=== PATIENT | male | born 1975 | race Caucasian/White ===

== ENCOUNTER 2023-05-24 22:04 | Emergency (ER) | payer MEDICARE ==
[~2023-05-24] VITALS: Ht 180.3 cm; Wt 104.0 kg
[2023-05-24] MEDS ORDERED: BUPR-345 PO (22:15)
[2023-05-24] MEDS ORDERED: ALBU18HF12 IH (22:15)
[2023-05-24] MEDS ORDERED: QUET300T2 PO (22:15)
[2023-05-24] MEDS ORDERED: LURA60TA PO (22:15)
[2023-05-24 23:34] LABS: HEMOGLOBIN 13.7 g/dL (13.5-17.5); RED BLOOD CELL COUNT(AUTO) 4.66 MIL/uL (4.50-5.90)
[2023-05-24 23:37] LABS: BASOPHILS % (AUTO) 1.3 % (0.0-2.0); EOSINOPHILS % (AUTO) 2.6 % (1.0-6.0); HEMATOCRIT 41.3 % (41-53); LYMPHOCYTES # (AUTO) 1.5 K/uL (1.0-4.8); LYMPHOCYTES % (AUTO) 33.3 % (22.0-44.0); MEAN CORPUSCULAR HEMOGLOBIN 29.4 pg (26.0-34.0); MEAN CORPUSCULAR HGB CONC 33.2 G/dL (31.0-37.0); MEAN CORPUSCULAR VOLUME 89 fL (80-100); MONOCYTES # (AUTO) 0.4 K/uL (0.1-1.0); MONOCYTES % (AUTO) 9.8 % (2.0-9.0); NEUTROPHILS # (AUTO) 2.4 K/uL (1.8-7.7); PLATELET COUNT (AUTO) 226 K/uL (150-450); RED CELL DISTRIBUTION WIDTH 15.5 % (11.5-14.5)
[2023-05-24 23:43] LABS: ANION GAP 6 mmol/L (8-16); CALCIUM, TOTAL 9.1 mg/dL (8.8-10.5); CARBON DIOXIDE 29 mmol/L (22-29); CHLORIDE 103 mmol/L (98-107); CREATININE 0.72 mg/dL (0.60-1.30); GLOMERULAR FILTR. RATE CALC > 60 mL/min (>60); GLUCOSE,RANDOM 106 mg/dL (70-110); POTASSIUM 3.7 mmol/L (3.5-5.1); SODIUM SERUM 138 mmol/L (136-145)
[2023-05-24 23:49] LABS: ALANINE AMINOTRANSFERASE 14 U/L (12-78); ALBUMIN 3.1 g/dL (3.4-5.0); ALKALINE PHOSPHATASE 80 U/L (46-116); ASPARTATE AMINOTRANSFERASE 14 U/L (15-37); BILIRUBIN,TOTAL 0.2 mg/dL (0.1-1.0); CREATINE KINASE, TOTAL ONLY 58 U/L (39-308); TOTAL PROTEIN, SERUM 6.3 g/dL (6.4-8.2)
[2023-05-24 23:51] LABS: B-TYPE NATRIURETIC PEPTIDE 27 pg/mL (0-100)
[2023-05-25 02:13] VITALS: BP 129/84; PULSE 69; RESP 16; TEMP 97.9
== END 2023-05-25 02:15 | disposition home or self-care (01) ==
LOC: EDSEX 22:06 → EMS 22:06
DX: R60.0 Localized edema (principal); F31.9 Bipolar disorder, unspecified; J44.9 Chronic obstructive pulmonary disease, unspecified; F17.210 Nicotine dependence, cigarettes, uncomplicated; F15.90 Other stimulant use, unspecified, uncomplicated; Z98.890 Other specified postprocedural states
CPT/HCPCS: 99285; 71045; 80053; 82550; 83880; 84484; 85025; 93005; G0480

== ENCOUNTER 2023-05-25 04:57 | Inpatient (IN) | payer MEDICARE ==
[~2023-05-25] VITALS: Ht 180.3 cm; Wt 107.0 kg
[~2023-05-25 04:57] MED LIST: ALBU18HF12 IH; BUPR-345 PO; LURA60TA PO; QUET300T2 PO
[2023-05-25 07:51] LABS: ALCOHOL, URINE DRUG SCREEN NEGATIVE (NEGATIVE); AMPHET/METH SCREEN,URINE NEGATIVE (NEGATIVE); BARBITURATE SCREEN, URINE NEGATIVE (NEGATIVE); BENZODIAZEPINES SCREEN,URINE NEGATIVE (NEGATIVE); CANNABINOID SCREEN,URINE NEGATIVE (NEGATIVE); COCAINE SCREEN,URINE NEGATIVE (NEGATIVE); METHADONE SCREEN, URINE NEGATIVE (NEGATIVE); OPIATE SCREEN,URINE NEGATIVE (NEGATIVE); PHENCYCLIDINE SCREEN,URINE NEGATIVE (NEGATIVE)
[2023-05-25 08:14] LABS: COVID AG,FIA SOURCE NASAL SWAB
[2023-05-25 08:36] LABS: SARS-COV2 (COVID) ANTIGEN,FIA Negative (Negative)
[2023-05-25] MEDS ORDERED: OLANZapine 5 MG RAPDIS TABLET PO PRN (10:15)
[2023-05-25] MEDS ORDERED: ZOLPIDEM TARTRATE 5 MG TABLET PO PRN (10:15)
[2023-05-25 17:26] VITALS: RESP 18; TEMP 98.4
[2023-05-25] MEDS: LORazepam 2 MG TABLET PO PRN (19:21)
[2023-05-25 19:50] VITALS: BP 126/69; PULSE 81; RESP 18; TEMP 98; O2SAT 96
[2023-05-25 20:14] VITALS: BP 126/69; PULSE 81; RESP 18; TEMP 98; O2SAT 96
[2023-05-25] MEDS ORDERED: ACETAMINOPHEN 325 MG TABLET PO PRN (20:30)
[2023-05-26] MEDS: LORazepam 2 MG TABLET PO PRN (12:28)
[2023-05-26 15:00] VITALS: BP 125/70; PULSE 85; RESP 18; TEMP 97.8; O2SAT 97
[2023-05-26] MEDS ORDERED: GuaiFENesin/D-METHORPHAN [SUGAR-FREE] 200-20MG/10 ML SYRUP UDCUP PO PRN (16:00)
[2023-05-26] MEDS ORDERED: MAG HYDROX/AL HYDROX/SIMETH ES 30 ML SUSPENSION UDCUP PO PRN (16:00)
[2023-05-26] MEDS ORDERED: LOPERAMIDE HCL 2 MG CAPSULE PO PRN (16:00)
[2023-05-26] MEDS ORDERED: HydrOXYzine PAMOATE 50 MG CAPSULE PO PRN (16:00)
[2023-05-26] MEDS ORDERED: PROMETHAZINE HCL 25 MG TABLET PO PRN (16:00)
[2023-05-26] MEDS ORDERED: QUEtiapine FUMARATE 100 MG TABLET PO PRN (16:00)
[2023-05-26] MEDS ORDERED: ZOLPIDEM TARTRATE 5 MG TABLET PO PRN (16:00)
[2023-05-26] MEDS ORDERED: ACETAMINOPHEN 325 MG TABLET PO PRN (16:00)
[2023-05-26] MEDS ORDERED: TUBERCULIN, PURIFIED PROTEIN DERIVATIVE 5 TU/0.1 ML SYRINGE ID ONE (16:00)
[2023-05-26] MEDS: THIAMINE 100 MG TABLET PO SCH (17:04)
[2023-05-26] MEDS ORDERED: PNEUMOCOCCAL VACCINE POLYVALENT 0.5 ML SYRINGE [PPSV23] IM. ONE (18:45)
[2023-05-26] MEDS: MELATONIN 5 MG TABLET PO SCH (20:34)
[2023-05-26 20:43] VITALS: BP 110/68; PULSE 79; RESP 17; TEMP 98.1; O2SAT 97
[2023-05-26] MEDS ORDERED: QUEtiapine FUMARATE 200 MG TABLET PO SCH (21:00)
[2023-05-27 07:57] LABS: HEMOGLOBIN 13.7 g/dL (13.5-17.5); LYMPHOCYTES # (AUTO) 1.7 K/uL (1.0-4.8); LYMPHOCYTES % (AUTO) 47.5 % (22.0-44.0); MEAN CORPUSCULAR HEMOGLOBIN 29.1 pg (26.0-34.0); MEAN CORPUSCULAR HGB CONC 32.7 G/dL (31.0-37.0); MEAN CORPUSCULAR VOLUME 89 fL (80-100); MONOCYTES # (AUTO) 0.4 K/uL (0.1-1.0); MONOCYTES % (AUTO) 10.4 % (2.0-9.0); NEUTROPHILS # (AUTO) 1.4 K/uL (1.8-7.7); NEUTROPHILS % (AUTO) 38.1 % (40.0-70.0); PLATELET COUNT (AUTO) 203 K/uL (150-450); RED BLOOD CELL COUNT(AUTO) 4.73 MIL/uL (4.50-5.90); RED CELL DISTRIBUTION WIDTH 15.5 % (11.5-14.5); WHITE BLOOD COUNT (AUTO) 3.6 K/uL (4.5-11.0)
[2023-05-27 08:26] LABS: HEMOGLOBIN A1C 5.2 % (3.8-5.6)
[2023-05-27 08:34] LABS: ALANINE AMINOTRANSFERASE 13 U/L (12-78); ALBUMIN 2.8 g/dL (3.4-5.0); ALKALINE PHOSPHATASE 68 U/L (46-116); ANION GAP 6 mmol/L (8-16); ASPARTATE AMINOTRANSFERASE 13 U/L (15-37); BILIRUBIN,TOTAL 0.1 mg/dL (0.1-1.0); CALCIUM, TOTAL 8.7 mg/dL (8.8-10.5); CARBON DIOXIDE 30 mmol/L (22-29); CHLORIDE 105 mmol/L (98-107); CHOL/HDL RATIO 2.7 (4.2-7.3); CHOLESTEROL 109 mg/dL (131-200); CREATININE 0.69 mg/dL (0.60-1.30); GLOMERULAR FILTR. RATE CALC > 60 mL/min (>60); GLUCOSE,RANDOM 94 mg/dL (70-110); HDL CHOLESTEROL 41 mg/dL (40-60); LDL CHOL (CALC.) 57 mg/dL (0-130); POTASSIUM 3.8 mmol/L (3.5-5.1); SODIUM SERUM 141 mmol/L (136-145); TOTAL PROTEIN, SERUM 5.8 g/dL (6.4-8.2); TRIGLYCERIDES 55 mg/dL (15-150); UREA NITROGEN, BLOOD 11 mg/dL (7-18)
[2023-05-27] MEDS: THIAMINE 100 MG TABLET PO SCH ×2 (08:40→17:32)
[2023-05-27] MEDS: OMEGA-3/DHA/EPA/FISH OIL 1,000 MG CAPSULE PO SCH (08:40)
[2023-05-27] MEDS: FOLIC ACID 1 MG TABLET PO SCH (08:40)
[2023-05-27] MEDS: MULTIVITAMINS WITH MINERALS, THERAPEUTIC TABLET PO SCH (08:40)
[2023-05-27] MEDS: IBUPROFEN 600 MG TABLET PO PRN ×2 (08:54→20:42)
[2023-05-27] MEDS ORDERED: BuPROPion HCL XL 150 MG ER TABLET PO SCH (09:00)
[2023-05-27 09:03] VITALS: BP 116/68; PULSE 80; RESP 17; TEMP 98.3; O2SAT 97
[2023-05-27 09:03] LABS: FREE T4 (FREE THYROXINE) 0.93 ng/dL (0.76-1.46)
[2023-05-27] MEDS: LORazepam 2 MG TABLET PO PRN ×2 (12:09→20:47)
[2023-05-27 20:40] VITALS: BP 112/60; PULSE 78; RESP 18; TEMP 98; O2SAT 96
[2023-05-27] MEDS: MELATONIN 5 MG TABLET PO SCH (20:42)
[2023-05-27] MEDS ORDERED: QUEtiapine FUMARATE 200 MG TABLET PO SCH (21:00)
[2023-05-27 21:40] VITALS: BP 103/54; PULSE 72; RESP 18; TEMP 98.3; O2SAT 98
[2023-05-28 03:06] LABS: HEPATITIS C AB (EIA) Non Reactive (Non Reactive)
[2023-05-28 08:23] LABS: PH,URINE DRUG SCREEN 7.5 (5.0-8.0)
[2023-05-28 08:32] LABS: ALCOHOL, URINE DRUG SCREEN NEGATIVE (NEGATIVE); AMPHET/METH SCREEN,URINE NEGATIVE (NEGATIVE); BARBITURATE SCREEN, URINE NEGATIVE (NEGATIVE); BENZODIAZEPINES SCREEN,URINE NEGATIVE (NEGATIVE); CANNABINOID SCREEN,URINE NEGATIVE (NEGATIVE); COCAINE SCREEN,URINE NEGATIVE (NEGATIVE); METHADONE SCREEN, URINE NEGATIVE (NEGATIVE); OPIATE SCREEN,URINE NEGATIVE (NEGATIVE); PHENCYCLIDINE SCREEN,URINE NEGATIVE (NEGATIVE)
[2023-05-28] MEDS: THIAMINE 100 MG TABLET PO SCH ×2 (08:47→16:58)
[2023-05-28] MEDS: OMEGA-3/DHA/EPA/FISH OIL 1,000 MG CAPSULE PO SCH (08:47)
[2023-05-28] MEDS: MULTIVITAMINS WITH MINERALS, THERAPEUTIC TABLET PO SCH (08:47)
[2023-05-28] MEDS: PREGABALIN 25 MG CAPSULE PO SCH ×2 (08:47→13:02)
[2023-05-28] MEDS: FOLIC ACID 1 MG TABLET PO SCH (08:47)
[2023-05-28] MEDS ORDERED: DULoxetine HCL 20 MG CAPSULE PO SCH (09:00)
[2023-05-28 09:08] VITALS: BP 108/66; PULSE 59; RESP 18; TEMP 98.8; O2SAT 97
[2023-05-28] MEDS: LORazepam 2 MG TABLET PO PRN (13:13)
[2023-05-28] MEDS: PREGABALIN 50 MG CAPSULE PO SCH (17:08)
[2023-05-28] MEDS: MELATONIN 5 MG TABLET PO SCH (20:41)
[2023-05-28] MEDS: QUEtiapine FUMARATE 300 MG TABLET PO SCH (20:42)
[2023-05-28 20:45] VITALS: BP 125/73; PULSE 87; RESP 18; TEMP 98.1; O2SAT 96
[2023-05-29] MEDS: MULTIVITAMINS WITH MINERALS, THERAPEUTIC TABLET PO SCH (08:31)
[2023-05-29] MEDS: OMEGA-3/DHA/EPA/FISH OIL 1,000 MG CAPSULE PO SCH (08:31)
[2023-05-29] MEDS: FOLIC ACID 1 MG TABLET PO SCH (08:31)
[2023-05-29] MEDS: THIAMINE 100 MG TABLET PO SCH ×2 (08:31→16:26)
[2023-05-29] MEDS: PREGABALIN 50 MG CAPSULE PO SCH ×3 (08:49→16:26)
[2023-05-29] MEDS ORDERED: DULoxetine HCL 30 MG CAPSULE PO SCH (09:00)
[2023-05-29 09:13] VITALS: BP 101/69; PULSE 86; RESP 17; TEMP 97.3; O2SAT 98
[2023-05-29] MEDS: LORazepam 2 MG TABLET PO PRN (17:32)
[2023-05-29] MEDS: MELATONIN 5 MG TABLET PO SCH (21:15)
[2023-05-29] MEDS: QUEtiapine FUMARATE 300 MG TABLET PO SCH (21:15)
[2023-05-30 01:33] VITALS: BP 100/68; PULSE 88; RESP 18; TEMP 97.8; O2SAT 98
[2023-05-30 08:26] VITALS: BP 108/70; PULSE 73; RESP 17; TEMP 98; O2SAT 99
[2023-05-30] MEDS: FOLIC ACID 1 MG TABLET PO SCH (08:46)
[2023-05-30] MEDS: MULTIVITAMINS WITH MINERALS, THERAPEUTIC TABLET PO SCH (08:46)
[2023-05-30] MEDS: PREGABALIN 75 MG CAPSULE PO SCH ×3 (08:46→16:33)
[2023-05-30] MEDS: OMEGA-3/DHA/EPA/FISH OIL 1,000 MG CAPSULE PO SCH (08:46)
[2023-05-30] MEDS: DULoxetine HCL 20 MG CAPSULE PO SCH (08:46)
[2023-05-30] MEDS: THIAMINE 100 MG TABLET PO SCH ×2 (08:46→16:33)
[2023-05-30] MEDS: LORazepam 2 MG TABLET PO PRN (17:23)
[2023-05-30 20:01] VITALS: BP 106/61; PULSE 74; RESP 16; TEMP 98.3; O2SAT 96
[2023-05-30] MEDS: MELATONIN 5 MG TABLET PO SCH (20:28)
[2023-05-30] MEDS: QUEtiapine FUMARATE 300 MG TABLET PO SCH (20:29)
[2023-05-31] MEDS: DULoxetine HCL 20 MG CAPSULE PO SCH (08:38)
[2023-05-31] MEDS: PREGABALIN 75 MG CAPSULE PO SCH ×3 (08:38→17:14)
[2023-05-31] MEDS: OMEGA-3/DHA/EPA/FISH OIL 1,000 MG CAPSULE PO SCH (08:38)
[2023-05-31] MEDS: THIAMINE 100 MG TABLET PO SCH ×2 (08:38→17:14)
[2023-05-31] MEDS: FOLIC ACID 1 MG TABLET PO SCH (08:39)
[2023-05-31] MEDS: MULTIVITAMINS WITH MINERALS, THERAPEUTIC TABLET PO SCH (08:39)
[2023-05-31 08:41] VITALS: BP 105/61; PULSE 86; RESP 18; TEMP 98.2; O2SAT 98
[2023-05-31] MEDS: LORazepam 2 MG TABLET PO PRN (12:45)
[2023-05-31 20:09] VITALS: BP 106/60; PULSE 75; RESP 17; TEMP 98.3; O2SAT 96
[2023-05-31] MEDS: MELATONIN 5 MG TABLET PO SCH (20:18)
[2023-05-31] MEDS: QUEtiapine FUMARATE 300 MG TABLET PO SCH (20:18)
[2023-06-01] MEDS: PREGABALIN 75 MG CAPSULE PO SCH ×2 (08:27→12:07)
[2023-06-01] MEDS: MULTIVITAMINS WITH MINERALS, THERAPEUTIC TABLET PO SCH (08:27)
[2023-06-01] MEDS: DULoxetine HCL 20 MG CAPSULE PO SCH (08:27)
[2023-06-01] MEDS: THIAMINE 100 MG TABLET PO SCH ×2 (08:27→16:30)
[2023-06-01] MEDS: OMEGA-3/DHA/EPA/FISH OIL 1,000 MG CAPSULE PO SCH (08:27)
[2023-06-01] MEDS: FOLIC ACID 1 MG TABLET PO SCH (08:27)
[2023-06-01 09:11] VITALS: BP 112/61; PULSE 85; RESP 18; TEMP 97.8; O2SAT 97
[2023-06-01] MEDS: LORazepam 2 MG TABLET PO PRN (12:07)
[2023-06-01] MEDS: PREGABALIN 50 MG CAPSULE PO SCH (16:37)
[2023-06-01] MEDS: MELATONIN 5 MG TABLET PO SCH (20:28)
[2023-06-01] MEDS: QUEtiapine FUMARATE 200 MG TABLET PO SCH (20:31)
[2023-06-01 20:35] VITALS: BP 110/70; PULSE 68; RESP 18; TEMP 98; O2SAT 97
[2023-06-02] MEDS: MULTIVITAMINS WITH MINERALS, THERAPEUTIC TABLET PO SCH (08:40)
[2023-06-02] MEDS: OMEGA-3/DHA/EPA/FISH OIL 1,000 MG CAPSULE PO SCH (08:40)
[2023-06-02] MEDS: FOLIC ACID 1 MG TABLET PO SCH (08:40)
[2023-06-02] MEDS: PREGABALIN 50 MG CAPSULE PO SCH ×3 (08:40→16:34)
[2023-06-02] MEDS: THIAMINE 100 MG TABLET PO SCH ×2 (08:40→16:34)
[2023-06-02 08:45] VITALS: BP 116/69; PULSE 87; RESP 17; TEMP 97.3; O2SAT 98
[2023-06-02] MEDS ORDERED: DULoxetine HCL 60 MG CAPSULE PO SCH (09:00)
[2023-06-02] MEDS: LORazepam 2 MG TABLET PO PRN (09:18)
[2023-06-02] MEDS: MELATONIN 5 MG TABLET PO SCH (20:01)
[2023-06-02] MEDS: QUEtiapine FUMARATE 200 MG TABLET PO SCH (20:01)
[2023-06-02 20:13] VITALS: BP 115/82; PULSE 74; RESP 19; TEMP 98; O2SAT 96
[2023-06-03 08:30] VITALS: BP 109/59; PULSE 82; RESP 18; TEMP 97.8; O2SAT 97
[2023-06-03] MEDS: OMEGA-3/DHA/EPA/FISH OIL 1,000 MG CAPSULE PO SCH (08:43)
[2023-06-03] MEDS: MULTIVITAMINS WITH MINERALS, THERAPEUTIC TABLET PO SCH (08:43)
[2023-06-03] MEDS: PREGABALIN 50 MG CAPSULE PO SCH ×3 (08:43→17:09)
[2023-06-03] MEDS: FOLIC ACID 1 MG TABLET PO SCH (08:44)
[2023-06-03] MEDS: THIAMINE 100 MG TABLET PO SCH ×2 (08:44→17:09)
[2023-06-03] MEDS ORDERED: DULoxetine HCL 20 MG CAPSULE PO SCH (09:00)
[2023-06-03] MEDS: LORazepam 2 MG TABLET PO PRN (12:16)
[2023-06-03 20:08] VITALS: BP 105/70; PULSE 79; RESP 16; TEMP 98.1; O2SAT 97
[2023-06-03] MEDS: QUEtiapine FUMARATE 200 MG TABLET PO SCH (20:17)
[2023-06-03] MEDS: MELATONIN 5 MG TABLET PO SCH (20:17)
[2023-06-04 08:51] VITALS: BP 108/68; PULSE 80; RESP 18; TEMP 97.9; O2SAT 98
[2023-06-04] MEDS: THIAMINE 100 MG TABLET PO SCH ×2 (08:51→17:10)
[2023-06-04] MEDS: OMEGA-3/DHA/EPA/FISH OIL 1,000 MG CAPSULE PO SCH (08:51)
[2023-06-04] MEDS: PREGABALIN 50 MG CAPSULE PO SCH ×3 (08:51→17:10)
[2023-06-04] MEDS: MULTIVITAMINS WITH MINERALS, THERAPEUTIC TABLET PO SCH (08:51)
[2023-06-04] MEDS: FOLIC ACID 1 MG TABLET PO SCH (08:51)
[2023-06-04] MEDS ORDERED: DULoxetine HCL 30 MG CAPSULE PO SCH (09:00)
[2023-06-04] MEDS: LORazepam 2 MG TABLET PO PRN (10:02)
[2023-06-04] MEDS: MAGNESIUM HYDROXIDE SUSPENSION 30 ML UDCUP PO PRN (10:02)
[2023-06-04 20:02] VITALS: BP 117/64; PULSE 71; RESP 19; TEMP 97.8; O2SAT 97
[2023-06-04] MEDS: QUEtiapine FUMARATE 200 MG TABLET PO SCH (20:35)
[2023-06-04] MEDS: MELATONIN 5 MG TABLET PO SCH (20:35)
[2023-06-05 08:10] VITALS: BP 113/63; PULSE 83; RESP 16; TEMP 97.5; O2SAT 97
[2023-06-05] MEDS ORDERED: DULoxetine HCL 20 MG CAPSULE PO SCH (09:00)
[2023-06-05] MEDS: THIAMINE 100 MG TABLET PO SCH (09:08)
[2023-06-05] MEDS: FOLIC ACID 1 MG TABLET PO SCH (09:08)
[2023-06-05] MEDS: DULoxetine HCL 60 MG CAPSULE PO SCH (09:08)
[2023-06-05] MEDS: PREGABALIN 50 MG CAPSULE PO SCH ×3 (09:08→17:27)
[2023-06-05] MEDS: OMEGA-3/DHA/EPA/FISH OIL 1,000 MG CAPSULE PO SCH (09:08)
[2023-06-05] MEDS: MULTIVITAMINS WITH MINERALS, THERAPEUTIC TABLET PO SCH (09:08)
[2023-06-05] MEDS: LORazepam 2 MG TABLET PO PRN (12:05)
[2023-06-05] MEDS: QUEtiapine FUMARATE 300 MG TABLET PO SCH (20:46)
[2023-06-05] MEDS: MELATONIN 5 MG TABLET PO SCH (20:47)
[2023-06-05 23:45] VITALS: BP 126/77; PULSE 78; RESP 17; TEMP 97.7; O2SAT 98
[2023-06-06] MEDS: PREGABALIN 50 MG CAPSULE PO SCH ×3 (08:58→16:40)
[2023-06-06] MEDS: OMEGA-3/DHA/EPA/FISH OIL 1,000 MG CAPSULE PO SCH (08:58)
[2023-06-06] MEDS: MULTIVITAMINS WITH MINERALS, THERAPEUTIC TABLET PO SCH (08:59)
[2023-06-06] MEDS: DULoxetine HCL 60 MG CAPSULE PO SCH (08:59)
[2023-06-06 09:01] VITALS: BP 111/78; PULSE 114; RESP 18; TEMP 97.9; O2SAT 97
[2023-06-06] MEDS: LORazepam 2 MG TABLET PO PRN (10:05)
[2023-06-06] MEDS: QUEtiapine FUMARATE 300 MG TABLET PO SCH (21:20)
[2023-06-06] MEDS: MELATONIN 5 MG TABLET PO SCH (21:20)
[2023-06-06 23:23] VITALS: BP 119/68; PULSE 74; RESP 18; TEMP 98.3; O2SAT 96
[2023-06-07 08:23] VITALS: BP 100/13; PULSE 73; RESP 17; TEMP 97.8; O2SAT 98
[2023-06-07] MEDS: DULoxetine HCL 60 MG CAPSULE PO SCH (10:38)
[2023-06-07] MEDS: OMEGA-3/DHA/EPA/FISH OIL 1,000 MG CAPSULE PO SCH (10:38)
[2023-06-07] MEDS: MULTIVITAMINS WITH MINERALS, THERAPEUTIC TABLET PO SCH (10:39)
[2023-06-07] MEDS: PREGABALIN 50 MG CAPSULE PO SCH ×3 (10:39→16:12)
[2023-06-07] MEDS: LORazepam 2 MG TABLET PO PRN (16:12)
[2023-06-07 20:55] VITALS: BP 115/62; PULSE 67; RESP 18; TEMP 98.2; O2SAT 97
[2023-06-07] MEDS: MELATONIN 5 MG TABLET PO SCH (21:11)
[2023-06-07] MEDS: QUEtiapine FUMARATE 300 MG TABLET PO SCH (21:11)
[2023-06-08 08:25] VITALS: BP 100/60; PULSE 78; RESP 18; TEMP 97.8; O2SAT 96
[2023-06-08] MEDS: MULTIVITAMINS WITH MINERALS, THERAPEUTIC TABLET PO SCH (09:09)
[2023-06-08] MEDS: OMEGA-3/DHA/EPA/FISH OIL 1,000 MG CAPSULE PO SCH (09:09)
[2023-06-08] MEDS: DULoxetine HCL 60 MG CAPSULE PO SCH (09:09)
[2023-06-08] MEDS: PREGABALIN 50 MG CAPSULE PO SCH ×3 (09:10→16:33)
[2023-06-08] MEDS: LORazepam 2 MG TABLET PO PRN (09:34)
[2023-06-08 16:32] VITALS: BP 112/62; PULSE 71; RESP 18; TEMP 98.1
[2023-06-08 20:11] VITALS: BP 105/60; PULSE 67; RESP 18; TEMP 97.9; O2SAT 98
[2023-06-08] MEDS: MELATONIN 5 MG TABLET PO SCH (21:07)
[2023-06-08] MEDS: QUEtiapine FUMARATE 300 MG TABLET PO SCH (21:07)
[2023-06-09] MEDS: PREGABALIN 50 MG CAPSULE PO SCH ×3 (08:22→16:34)
[2023-06-09] MEDS: MULTIVITAMINS WITH MINERALS, THERAPEUTIC TABLET PO SCH (08:22)
[2023-06-09] MEDS: DULoxetine HCL 60 MG CAPSULE PO SCH (08:24)
[2023-06-09] MEDS: OMEGA-3/DHA/EPA/FISH OIL 1,000 MG CAPSULE PO SCH (08:24)
[2023-06-09 09:38] VITALS: BP 112/68; PULSE 69; RESP 18; TEMP 97.7; O2SAT 98
[2023-06-09] MEDS: LORazepam 2 MG TABLET PO PRN (12:26)
[2023-06-09] MEDS: MAGNESIUM HYDROXIDE SUSPENSION 30 ML UDCUP PO PRN (13:54)
[2023-06-09] MEDS: MELATONIN 5 MG TABLET PO SCH (20:37)
[2023-06-09] MEDS: QUEtiapine FUMARATE 300 MG TABLET PO SCH (20:37)
[2023-06-09 20:45] VITALS: BP 106/62; PULSE 73; RESP 19; TEMP 98.4; O2SAT 97
[2023-06-10] MEDS: LORazepam 2 MG TABLET PO PRN ×2 (06:53→17:27)
[2023-06-10 08:23] VITALS: BP 104/64; PULSE 84; RESP 18; TEMP 97.9; O2SAT 97
[2023-06-10] MEDS: MULTIVITAMINS WITH MINERALS, THERAPEUTIC TABLET PO SCH (08:59)
[2023-06-10] MEDS: DULoxetine HCL 60 MG CAPSULE PO SCH (08:59)
[2023-06-10] MEDS: OMEGA-3/DHA/EPA/FISH OIL 1,000 MG CAPSULE PO SCH (08:59)
[2023-06-10] MEDS: PREGABALIN 50 MG CAPSULE PO SCH ×3 (08:59→16:31)
[2023-06-10] MEDS: MAGNESIUM HYDROXIDE SUSPENSION 30 ML UDCUP PO PRN (17:30)
[2023-06-10 20:00] VITALS: BP 123/75; PULSE 83; RESP 18; TEMP 98.2
[2023-06-10] MEDS: MELATONIN 5 MG TABLET PO SCH (20:39)
[2023-06-10] MEDS: QUEtiapine FUMARATE 300 MG TABLET PO SCH (20:39)
[2023-06-11 08:03] VITALS: BP 101/59; PULSE 78; RESP 17; TEMP 95.8; O2SAT 98
[2023-06-11] MEDS: BuPROPion HCL XL 150 MG ER TABLET PO SCH (08:24)
[2023-06-11] MEDS: MULTIVITAMINS WITH MINERALS, THERAPEUTIC TABLET PO SCH (08:24)
[2023-06-11] MEDS: OMEGA-3/DHA/EPA/FISH OIL 1,000 MG CAPSULE PO SCH (08:24)
[2023-06-11] MEDS: PREGABALIN 50 MG CAPSULE PO SCH ×3 (08:25→16:37)
[2023-06-11] MEDS: DULoxetine HCL 60 MG CAPSULE PO SCH (08:25)
[2023-06-11] MEDS: LORazepam 2 MG TABLET PO PRN (16:39)
[2023-06-11] MEDS: MAGNESIUM HYDROXIDE SUSPENSION 30 ML UDCUP PO PRN (17:34)
[2023-06-11] MEDS: QUEtiapine FUMARATE 300 MG TABLET PO SCH (20:19)
[2023-06-11] MEDS: MELATONIN 5 MG TABLET PO SCH (20:20)
[2023-06-11 21:17] VITALS: BP 106/62; PULSE 78; RESP 16; TEMP 98.6; O2SAT 99
[2023-06-12] MEDS: MAGNESIUM HYDROXIDE SUSPENSION 30 ML UDCUP PO PRN (06:55)
[2023-06-12 08:18] VITALS: BP 112/67; PULSE 72; RESP 18; TEMP 98.4; O2SAT 97
[2023-06-12] MEDS: MULTIVITAMINS WITH MINERALS, THERAPEUTIC TABLET PO SCH (08:45)
[2023-06-12] MEDS: OMEGA-3/DHA/EPA/FISH OIL 1,000 MG CAPSULE PO SCH (08:45)
[2023-06-12] MEDS: PREGABALIN 50 MG CAPSULE PO SCH ×3 (08:45→17:14)
[2023-06-12] MEDS: BuPROPion HCL XL 150 MG ER TABLET PO SCH (08:45)
[2023-06-12] MEDS: DULoxetine HCL 60 MG CAPSULE PO SCH (08:45)
[2023-06-12] MEDS: LORazepam 2 MG TABLET PO PRN (10:11)
[2023-06-12] MEDS ORDERED: ESZOPICLONE 3 MG TABLET PO PRN (13:45)
[2023-06-12] MEDS: GABAPENTIN 300 MG CAPSULE PO PRN (14:40)
[2023-06-12 20:07] VITALS: BP 116/60; PULSE 71; RESP 17; TEMP 97.9; O2SAT 96
[2023-06-12] MEDS: MELATONIN 5 MG TABLET PO SCH (20:30)
[2023-06-12] MEDS: QUEtiapine FUMARATE 300 MG TABLET PO SCH (20:30)
[2023-06-13 08:26] VITALS: BP 109/63; PULSE 85; RESP 19; TEMP 97.5; O2SAT 95
[2023-06-13] MEDS: PREGABALIN 50 MG CAPSULE PO SCH ×3 (08:29→17:07)
[2023-06-13] MEDS: OMEGA-3/DHA/EPA/FISH OIL 1,000 MG CAPSULE PO SCH (08:29)
[2023-06-13] MEDS: DULoxetine HCL 60 MG CAPSULE PO SCH (08:29)
[2023-06-13] MEDS: BuPROPion HCL XL 150 MG ER TABLET PO SCH (08:29)
[2023-06-13] MEDS: MULTIVITAMINS WITH MINERALS, THERAPEUTIC TABLET PO SCH (08:29)
[2023-06-13 20:07] VITALS: BP 101/60; PULSE 73; RESP 17; TEMP 98.3; O2SAT 96
[2023-06-13] MEDS: MELATONIN 5 MG TABLET PO SCH (20:11)
[2023-06-13] MEDS: QUEtiapine FUMARATE 300 MG TABLET PO SCH (20:12)
[2023-06-14 08:13] VITALS: BP 110/60; PULSE 65; RESP 17; TEMP 97.5; O2SAT 97
[2023-06-14] MEDS: MULTIVITAMINS WITH MINERALS, THERAPEUTIC TABLET PO SCH (09:00)
[2023-06-14] MEDS: PREGABALIN 50 MG CAPSULE PO SCH ×3 (09:00→16:45)
[2023-06-14] MEDS: DULoxetine HCL 60 MG CAPSULE PO SCH (09:00)
[2023-06-14] MEDS: OMEGA-3/DHA/EPA/FISH OIL 1,000 MG CAPSULE PO SCH (09:00)
[2023-06-14] MEDS: BuPROPion HCL XL 150 MG ER TABLET PO SCH (09:00)
[2023-06-14 20:11] VITALS: BP 109/66; PULSE 63; RESP 17; TEMP 97.2; O2SAT 96
[2023-06-14] MEDS: MELATONIN 5 MG TABLET PO SCH (20:28)
[2023-06-14] MEDS: QUEtiapine FUMARATE 300 MG TABLET PO SCH (20:28)
[2023-06-14 23:57] VITALS: BP 109/66; PULSE 63; RESP 17; TEMP 97.2
[2023-06-15 08:26] VITALS: BP 108/68; PULSE 66; RESP 18; TEMP 98.7; O2SAT 98
[2023-06-15] MEDS: BuPROPion HCL XL 150 MG ER TABLET PO SCH (08:41)
[2023-06-15] MEDS: MULTIVITAMINS WITH MINERALS, THERAPEUTIC TABLET PO SCH (08:41)
[2023-06-15] MEDS: PREGABALIN 50 MG CAPSULE PO SCH ×3 (08:41→16:55)
[2023-06-15] MEDS: OMEGA-3/DHA/EPA/FISH OIL 1,000 MG CAPSULE PO SCH (08:41)
[2023-06-15] MEDS: DULoxetine HCL 60 MG CAPSULE PO SCH (08:42)
[2023-06-15] MEDS: GABAPENTIN 300 MG CAPSULE PO PRN (10:10)
[2023-06-15 20:17] VITALS: BP 126/69; PULSE 77; RESP 19; TEMP 98.3; O2SAT 96
[2023-06-15] MEDS: QUEtiapine FUMARATE 300 MG TABLET PO SCH (20:24)
[2023-06-15] MEDS: MELATONIN 5 MG TABLET PO SCH (20:24)
[2023-06-16] MEDS: OMEGA-3/DHA/EPA/FISH OIL 1,000 MG CAPSULE PO SCH (08:37)
[2023-06-16] MEDS: MULTIVITAMINS WITH MINERALS, THERAPEUTIC TABLET PO SCH (08:37)
[2023-06-16] MEDS: DULoxetine HCL 60 MG CAPSULE PO SCH (08:38)
[2023-06-16] MEDS: PREGABALIN 50 MG CAPSULE PO SCH ×3 (08:38→16:28)
[2023-06-16] MEDS ORDERED: BuPROPion HCL XL 150 MG ER TABLET PO SCH (09:00)
[2023-06-16 09:24] VITALS: BP 104/62; PULSE 74; RESP 18; TEMP 98; O2SAT 98
[2023-06-16 20:00] VITALS: BP 92/51; PULSE 77; RESP 18; TEMP 98; O2SAT 96
[2023-06-16] MEDS: QUEtiapine FUMARATE 300 MG TABLET PO SCH (20:47)
[2023-06-16] MEDS: MELATONIN 5 MG TABLET PO SCH (20:48)
[2023-06-17 08:13] VITALS: BP 109/69; PULSE 70; RESP 16; TEMP 98; O2SAT 96
[2023-06-17] MEDS: PREGABALIN 50 MG CAPSULE PO SCH ×3 (08:43→16:33)
[2023-06-17] MEDS: DULoxetine HCL 60 MG CAPSULE PO SCH (08:44)
[2023-06-17] MEDS: OMEGA-3/DHA/EPA/FISH OIL 1,000 MG CAPSULE PO SCH (08:44)
[2023-06-17] MEDS: BuPROPion HCL XL 150 MG ER TABLET PO SCH (08:44)
[2023-06-17] MEDS: MULTIVITAMINS WITH MINERALS, THERAPEUTIC TABLET PO SCH (08:44)
[2023-06-17] MEDS: MELATONIN 5 MG TABLET PO SCH (20:22)
[2023-06-17] MEDS: QUEtiapine FUMARATE 300 MG TABLET PO SCH (20:22)
[2023-06-17 20:41] VITALS: BP 134/83; PULSE 79; RESP 17; TEMP 98.5; O2SAT 98
[2023-06-18 08:24] VITALS: BP 118/73; PULSE 80; RESP 16; TEMP 98; O2SAT 97
[2023-06-18] MEDS: BuPROPion HCL XL 150 MG ER TABLET PO SCH (08:55)
[2023-06-18] MEDS: MULTIVITAMINS WITH MINERALS, THERAPEUTIC TABLET PO SCH (08:55)
[2023-06-18] MEDS: OMEGA-3/DHA/EPA/FISH OIL 1,000 MG CAPSULE PO SCH (08:55)
[2023-06-18] MEDS: DULoxetine HCL 60 MG CAPSULE PO SCH (08:56)
[2023-06-18] MEDS: PREGABALIN 50 MG CAPSULE PO SCH ×3 (09:01→17:05)
[2023-06-18] MEDS: QUEtiapine FUMARATE 300 MG TABLET PO SCH (19:49)
[2023-06-18] MEDS: MELATONIN 5 MG TABLET PO SCH (19:56)
[2023-06-18 20:12] VITALS: BP 141/73; PULSE 81; RESP 17; TEMP 98.2; O2SAT 97
[2023-06-19 08:22] VITALS: BP 103/60; PULSE 80; RESP 16; TEMP 97.3; O2SAT 96
[2023-06-19] MEDS: OMEGA-3/DHA/EPA/FISH OIL 1,000 MG CAPSULE PO SCH (08:44)
[2023-06-19] MEDS: PREGABALIN 50 MG CAPSULE PO SCH ×3 (08:45→17:13)
[2023-06-19] MEDS: DULoxetine HCL 60 MG CAPSULE PO SCH (08:45)
[2023-06-19] MEDS: MULTIVITAMINS WITH MINERALS, THERAPEUTIC TABLET PO SCH (08:45)
[2023-06-19] MEDS: BuPROPion HCL XL 150 MG ER TABLET PO SCH (08:45)
[2023-06-19 20:09] VITALS: BP 144/75; PULSE 66; RESP 17; TEMP 98; O2SAT 98
[2023-06-19] MEDS: MELATONIN 5 MG TABLET PO SCH (20:34)
[2023-06-19] MEDS: QUEtiapine FUMARATE 300 MG TABLET PO SCH (20:34)
[2023-06-20 08:30] VITALS: BP 109/62; PULSE 79; RESP 17; TEMP 97.5; O2SAT 95
[2023-06-20] MEDS: DULoxetine HCL 60 MG CAPSULE PO SCH (09:00)
[2023-06-20] MEDS: PREGABALIN 50 MG CAPSULE PO SCH ×3 (09:00→16:33)
[2023-06-20] MEDS: BuPROPion HCL XL 150 MG ER TABLET PO SCH (09:53)
[2023-06-20] MEDS: MULTIVITAMINS WITH MINERALS, THERAPEUTIC TABLET PO SCH (09:53)
[2023-06-20] MEDS: OMEGA-3/DHA/EPA/FISH OIL 1,000 MG CAPSULE PO SCH (09:54)
[2023-06-20 13:00] VITALS: BP 109/62; PULSE 79; RESP 18; TEMP 97.5; O2SAT 95
[2023-06-20] MEDS: MELATONIN 5 MG TABLET PO SCH (20:31)
[2023-06-20] MEDS: QUEtiapine FUMARATE 300 MG TABLET PO SCH (20:31)
[2023-06-20 20:48] VITALS: BP 121/69; PULSE 82; RESP 18; TEMP 96.8; O2SAT 96
[2023-06-21 08:02] VITALS: BP 133/74; PULSE 81; RESP 16; TEMP 97.1; O2SAT 97
[2023-06-21] MEDS: OMEGA-3/DHA/EPA/FISH OIL 1,000 MG CAPSULE PO SCH (09:28)
[2023-06-21] MEDS: PREGABALIN 50 MG CAPSULE PO SCH ×3 (09:28→17:02)
[2023-06-21] MEDS: BuPROPion HCL XL 150 MG ER TABLET PO SCH (09:28)
[2023-06-21] MEDS: MULTIVITAMINS WITH MINERALS, THERAPEUTIC TABLET PO SCH (09:28)
[2023-06-21] MEDS: DULoxetine HCL 60 MG CAPSULE PO SCH (10:11)
[2023-06-21 14:28] VITALS: BP 133/74; PULSE 81; RESP 16; TEMP 97.1; O2SAT 97
[2023-06-21 20:05] VITALS: BP 126/88; PULSE 80; RESP 18; TEMP 97.3; O2SAT 98
[2023-06-21] MEDS: QUEtiapine FUMARATE 300 MG TABLET PO SCH (20:28)
[2023-06-21] MEDS: MELATONIN 5 MG TABLET PO SCH ×2 (20:29→20:50)
[2023-06-22] MEDS: BuPROPion HCL XL 150 MG ER TABLET PO SCH (08:08)
[2023-06-22] MEDS: PREGABALIN 50 MG CAPSULE PO SCH ×3 (08:08→16:49)
[2023-06-22] MEDS: DULoxetine HCL 60 MG CAPSULE PO SCH (08:08)
[2023-06-22] MEDS: MULTIVITAMINS WITH MINERALS, THERAPEUTIC TABLET PO SCH (08:08)
[2023-06-22] MEDS: OMEGA-3/DHA/EPA/FISH OIL 1,000 MG CAPSULE PO SCH (08:08)
[2023-06-22 08:17] VITALS: BP 112/63; PULSE 67; RESP 19; TEMP 97.7; O2SAT 98
[2023-06-22 20:17] VITALS: BP 102/64; PULSE 75; RESP 20; TEMP 97.7; O2SAT 100
[2023-06-22] MEDS: MELATONIN 5 MG TABLET PO SCH (20:37)
[2023-06-22] MEDS: QUEtiapine FUMARATE 300 MG TABLET PO SCH (20:37)
[2023-06-23] MEDS: DULoxetine HCL 60 MG CAPSULE PO SCH (08:14)
[2023-06-23] MEDS: OMEGA-3/DHA/EPA/FISH OIL 1,000 MG CAPSULE PO SCH (08:15)
[2023-06-23] MEDS: MULTIVITAMINS WITH MINERALS, THERAPEUTIC TABLET PO SCH (08:16)
[2023-06-23] MEDS: BuPROPion HCL XL 150 MG ER TABLET PO SCH (08:16)
[2023-06-23] MEDS: PREGABALIN 50 MG CAPSULE PO SCH ×3 (08:21→16:33)
[2023-06-23 09:57] VITALS: BP 110/65; PULSE 81; RESP 17; TEMP 97.2; O2SAT 97
[2023-06-23 20:23] VITALS: BP 126/68; PULSE 79; RESP 18; TEMP 98.4; O2SAT 98
[2023-06-23] MEDS: QUEtiapine FUMARATE 300 MG TABLET PO SCH (20:34)
[2023-06-23] MEDS: MELATONIN 5 MG TABLET PO SCH (20:34)
[2023-06-24] MEDS: BuPROPion HCL XL 150 MG ER TABLET PO SCH (08:06)
[2023-06-24] MEDS: MULTIVITAMINS WITH MINERALS, THERAPEUTIC TABLET PO SCH (08:06)
[2023-06-24] MEDS: OMEGA-3/DHA/EPA/FISH OIL 1,000 MG CAPSULE PO SCH (08:06)
[2023-06-24] MEDS: PREGABALIN 50 MG CAPSULE PO SCH ×3 (08:07→16:18)
[2023-06-24] MEDS: DULoxetine HCL 60 MG CAPSULE PO SCH (08:07)
[2023-06-24 08:25] VITALS: BP 121/67; PULSE 80; RESP 17; TEMP 98; O2SAT 97
[2023-06-24 20:30] VITALS: BP 135/72; PULSE 71; RESP 17; TEMP 98.2; O2SAT 96
[2023-06-24] MEDS: QUEtiapine FUMARATE 300 MG TABLET PO SCH (20:36)
[2023-06-24] MEDS: MELATONIN 5 MG TABLET PO SCH (20:36)
[2023-06-25 09:03] VITALS: BP 110/88; PULSE 72; RESP 17; TEMP 98; O2SAT 97
[2023-06-25] MEDS: MULTIVITAMINS WITH MINERALS, THERAPEUTIC TABLET PO SCH (10:11)
[2023-06-25] MEDS: OMEGA-3/DHA/EPA/FISH OIL 1,000 MG CAPSULE PO SCH (10:11)
[2023-06-25] MEDS: BuPROPion HCL XL 150 MG ER TABLET PO SCH (10:12)
[2023-06-25] MEDS: DULoxetine HCL 60 MG CAPSULE PO SCH (10:12)
[2023-06-25] MEDS: PREGABALIN 50 MG CAPSULE PO SCH ×3 (10:12→17:43)
[2023-06-25] MEDS: MELATONIN 5 MG TABLET PO SCH (21:00)
[2023-06-25] MEDS: QUEtiapine FUMARATE 300 MG TABLET PO SCH (21:12)
[2023-06-25 21:24] VITALS: BP 130/81; PULSE 72; RESP 18; TEMP 98.3; O2SAT 97
[2023-06-26 08:44] VITALS: BP 119/61; PULSE 75; RESP 17; TEMP 98; O2SAT 97
[2023-06-26] MEDS: BuPROPion HCL XL 150 MG ER TABLET PO SCH (08:47)
[2023-06-26] MEDS: PREGABALIN 50 MG CAPSULE PO SCH ×3 (08:48→16:33)
[2023-06-26] MEDS: MULTIVITAMINS WITH MINERALS, THERAPEUTIC TABLET PO SCH (08:48)
[2023-06-26] MEDS: DULoxetine HCL 60 MG CAPSULE PO SCH (08:48)
[2023-06-26] MEDS: OMEGA-3/DHA/EPA/FISH OIL 1,000 MG CAPSULE PO SCH (08:48)
[2023-06-26] MEDS: QUEtiapine FUMARATE 300 MG TABLET PO SCH (20:24)
[2023-06-26] MEDS: MELATONIN 5 MG TABLET PO SCH (20:28)
[2023-06-26 20:44] VITALS: BP 120/74; PULSE 79; RESP 18; TEMP 98; O2SAT 96
[2023-06-27 08:10] VITALS: BP 129/76; PULSE 77; RESP 16; TEMP 97.7; O2SAT 96
[2023-06-27] MEDS: OMEGA-3/DHA/EPA/FISH OIL 1,000 MG CAPSULE PO SCH (08:38)
[2023-06-27] MEDS: MULTIVITAMINS WITH MINERALS, THERAPEUTIC TABLET PO SCH (08:38)
[2023-06-27] MEDS: BuPROPion HCL XL 150 MG ER TABLET PO SCH (08:38)
[2023-06-27] MEDS: DULoxetine HCL 60 MG CAPSULE PO SCH (08:39)
[2023-06-27] MEDS: PREGABALIN 50 MG CAPSULE PO SCH ×3 (08:39→16:31)
[2023-06-27 20:14] VITALS: BP 124/72; PULSE 78; RESP 17; TEMP 98.2; O2SAT 97
[2023-06-27] MEDS: QUEtiapine FUMARATE 300 MG TABLET PO SCH (20:40)
[2023-06-27] MEDS: MELATONIN 5 MG TABLET PO SCH (20:44)
[2023-06-28 08:07] VITALS: BP 137/66; PULSE 92; RESP 17; TEMP 97.8; O2SAT 96
[2023-06-28] MEDS: BuPROPion HCL XL 150 MG ER TABLET PO SCH (08:33)
[2023-06-28] MEDS: PREGABALIN 50 MG CAPSULE PO SCH ×3 (08:34→17:02)
[2023-06-28] MEDS: OMEGA-3/DHA/EPA/FISH OIL 1,000 MG CAPSULE PO SCH (08:34)
[2023-06-28] MEDS: MULTIVITAMINS WITH MINERALS, THERAPEUTIC TABLET PO SCH (08:34)
[2023-06-28] MEDS: DULoxetine HCL 60 MG CAPSULE PO SCH (08:34)
[2023-06-28 20:52] VITALS: BP 135/72; PULSE 87; RESP 18; TEMP 97.6; O2SAT 99
[2023-06-28] MEDS: QUEtiapine FUMARATE 300 MG TABLET PO SCH (21:00)
[2023-06-28] MEDS: MELATONIN 5 MG TABLET PO SCH (21:00)
[2023-06-29] MEDS: MULTIVITAMINS WITH MINERALS, THERAPEUTIC TABLET PO SCH ×2 (08:11→09:00)
[2023-06-29] MEDS: BuPROPion HCL XL 150 MG ER TABLET PO SCH ×2 (08:11→09:00)
[2023-06-29] MEDS: PREGABALIN 50 MG CAPSULE PO SCH ×4 (08:12→16:42)
[2023-06-29] MEDS: DULoxetine HCL 60 MG CAPSULE PO SCH ×2 (08:12→09:00)
[2023-06-29] MEDS: OMEGA-3/DHA/EPA/FISH OIL 1,000 MG CAPSULE PO SCH ×2 (08:12→09:00)
[2023-06-29] MEDS ORDERED: LORazepam 2 MG/ML VIAL ONE (18:58)
[2023-06-29] MEDS ORDERED: DiphenhydrAMINE HCL 50 MG/ML VIAL ONE (18:58)
[2023-06-29] MEDS ORDERED: HALOPERIDOL LACTATE 5 MG/ML VIAL ONE (18:58)
[2023-06-29] MEDS ORDERED: HALOPERIDOL LACTATE 5 MG/ML VIAL IM ONE (19:00)
[2023-06-29] MEDS ORDERED: LORazepam 2 MG/ML VIAL IM ONE (19:00)
[2023-06-29] MEDS ORDERED: DiphenhydrAMINE HCL 50 MG/ML VIAL IM ONE (19:00)
[2023-06-29] MEDS: QUEtiapine FUMARATE 300 MG TABLET PO SCH (20:31)
[2023-06-29] MEDS: MELATONIN 5 MG TABLET PO SCH (20:31)
[2023-06-29 21:08] VITALS: RESP 18
[2023-06-30] MEDS: PREGABALIN 50 MG CAPSULE PO SCH ×3 (08:42→16:29)
[2023-06-30] MEDS: OMEGA-3/DHA/EPA/FISH OIL 1,000 MG CAPSULE PO SCH (08:42)
[2023-06-30] MEDS: MULTIVITAMINS WITH MINERALS, THERAPEUTIC TABLET PO SCH (08:43)
[2023-06-30] MEDS: BuPROPion HCL XL 150 MG ER TABLET PO SCH (08:43)
[2023-06-30 08:44] VITALS: BP 118/74; PULSE 68; RESP 16; TEMP 97.4; O2SAT 96
[2023-06-30] MEDS: DULoxetine HCL 60 MG CAPSULE PO SCH (09:05)
[2023-06-30] MEDS: QUEtiapine FUMARATE 300 MG TABLET PO SCH (20:33)
[2023-06-30] MEDS: MELATONIN 5 MG TABLET PO SCH (20:33)
[2023-06-30 21:49] VITALS: BP 121/75; PULSE 93; RESP 18; TEMP 98.2; O2SAT 97
[2023-06-30] MEDS ORDERED: BISMUTH SUBSALICYLATE 262 MG CHEWABLE TABLET CHEW PRN (22:45)
[2023-07-01 09:20] VITALS: BP 130/64; PULSE 86; RESP 16; TEMP 98; O2SAT 100
[2023-07-01] MEDS: MULTIVITAMINS WITH MINERALS, THERAPEUTIC TABLET PO SCH (09:23)
[2023-07-01] MEDS: OMEGA-3/DHA/EPA/FISH OIL 1,000 MG CAPSULE PO SCH (09:23)
[2023-07-01] MEDS: PREGABALIN 50 MG CAPSULE PO SCH ×3 (09:23→16:45)
[2023-07-01] MEDS: DULoxetine HCL 60 MG CAPSULE PO SCH (09:23)
[2023-07-01] MEDS: BuPROPion HCL XL 150 MG ER TABLET PO SCH (09:23)
[2023-07-01] MEDS ORDERED: MELA5TAB40 PO (15:03)
[2023-07-01] MEDS ORDERED: DULO-113 PO (15:03)
[2023-07-01] MEDS ORDERED: BUPR-49 PO (15:03)
[2023-07-01] MEDS ORDERED: PREG50 PO (15:03)
[2023-07-01] MEDS ORDERED: QUET300T19 PO (15:03)
[2023-07-01] MEDS ORDERED: OMEG-135 PO (15:03)
[2023-07-01 20:11] VITALS: BP 129/79; PULSE 66; RESP 18; TEMP 98.3; O2SAT 96
[2023-07-01] MEDS: QUEtiapine FUMARATE 300 MG TABLET PO SCH (20:30)
[2023-07-01] MEDS: MELATONIN 5 MG TABLET PO SCH (20:30)
[2023-07-02] MEDS: OMEGA-3/DHA/EPA/FISH OIL 1,000 MG CAPSULE PO SCH (08:28)
[2023-07-02] MEDS: BuPROPion HCL XL 150 MG ER TABLET PO SCH (08:28)
[2023-07-02] MEDS: MULTIVITAMINS WITH MINERALS, THERAPEUTIC TABLET PO SCH (08:28)
[2023-07-02] MEDS: PREGABALIN 50 MG CAPSULE PO SCH (08:32)
[2023-07-02] MEDS: DULoxetine HCL 60 MG CAPSULE PO SCH (08:32)
[2023-07-02 08:36] VITALS: BP 120/80; PULSE 76; RESP 18; TEMP 98.4; O2SAT 96
== END 2023-07-02 09:37 | disposition home or self-care (01) | DRG 885 ==
LOC: EMS 04:58 → B2X 14:20
PROVIDERS: ADMIT Psychiatry & Neurology Psychiatry; ATTEND Psychiatry & Neurology Psychiatry
DX: F31.30 Bipolar disorder, current episode depressed, mild or moderate severity, unspecified (principal); N18.9 Chronic kidney disease, unspecified; R45.851 Suicidal ideations; E46 Unspecified protein-calorie malnutrition; F17.200 Nicotine dependence, unspecified, uncomplicated; F43.10 Post-traumatic stress disorder, unspecified; D72.819 Decreased white blood cell count, unspecified; E88.09 Other disorders of plasma-protein metabolism, not elsewhere classified; K29.70 Gastritis, unspecified, without bleeding; E83.51 Hypocalcemia; Z68.32 Body mass index [BMI] 32.0-32.9, adult; Z20.822 Contact with and (suspected) exposure to COVID-19; F15.90 Other stimulant use, unspecified, uncomplicated; F22 Delusional disorders; F41.0 Panic disorder [episodic paroxysmal anxiety]; G47.00 Insomnia, unspecified; G89.29 Other chronic pain; J44.9 Chronic obstructive pulmonary disease, unspecified; Z55.9 Problems related to education and literacy, unspecified; Z59.9 Problem related to housing and economic circumstances, unspecified; Z63.9 Problem related to primary support group, unspecified; Z65.3 Problems related to other legal circumstances; Z79.899 Other long term (current) drug therapy; Z91.148 Patient's other noncompliance with medication regimen for other reason; Z91.199 Patient's noncompliance with other medical treatment and regimen due to unspecified reason; Z91.51 Personal history of suicidal behavior
CPT/HCPCS: 80053; 80061; 80307; 83036; 84439; 84443; 85025; 86592; 86803; 87081; 87340; 90732; 99285; J1200; J1630; J2060; Q9967

== ENCOUNTER 2023-11-05 21:10 | Inpatient (IN) | payer MEDICARE, OTHER ==
[~2023-11-05] VITALS: Ht 180.3 cm; Wt 88.7 kg
[~2023-11-05 21:10] MED LIST changes: -BUPR-345 PO; +BUPR-49 PO; +DULO-113 PO; +DULO-114 PO; -LURA60TA PO; +MELA5TAB40 PO; +NALT50TA33 PO; +OMEG-135 PO; +PREG25 PO; +PREG50 PO; +QUET200T30 PO; +QUET300T19 PO; -QUET300T2 PO
[2023-11-05] MEDS ORDERED: 0.9% SODIUM CHLORIDE 10 ML SYRINGE IVP PRN (21:45)
[2023-11-05] MEDS ORDERED: ALBUTEROL SULFATE 2.5 MG/0.5 ML NEB SOLUTION NEB PRN (21:45)
[2023-11-05 21:50] VITALS: BP 117/63; PULSE 97; RESP 22; TEMP 99.4
[2023-11-05] MEDS: SODIUM CHLORIDE 0.9% 1,500 ML IV ONE (22:21)
[2023-11-05 22:41] LABS: BASOPHILS % (AUTO) 0.6 % (0.0-2.0); EOSINOPHILS % (AUTO) 0.2 % (1.0-6.0); HEMATOCRIT 39.4 % (41-53); HEMOGLOBIN 12.7 g/dL (13.5-17.5); LYMPHOCYTES # (AUTO) 0.6 K/uL (1.0-4.8); LYMPHOCYTES % (AUTO) 19.9 % (22.0-44.0); MEAN CORPUSCULAR HEMOGLOBIN 28.7 pg (26.0-34.0); MEAN CORPUSCULAR HGB CONC 32.3 G/dL (31.0-37.0); MEAN CORPUSCULAR VOLUME 89 fL (80-100); MONOCYTES # (AUTO) 0.7 K/uL (0.1-1.0); MONOCYTES % (AUTO) 21.5 % (2.0-9.0); NEUTROPHILS # (AUTO) 1.8 K/uL (1.8-7.7); NEUTROPHILS % (AUTO) 57.8 % (40.0-70.0); PLATELET COUNT (AUTO) 150 K/uL (150-450); RED BLOOD CELL COUNT(AUTO) 4.44 MIL/uL (4.50-5.90); RED CELL DISTRIBUTION WIDTH 15.9 % (11.5-14.5); WHITE BLOOD COUNT (AUTO) 3.1 K/uL (4.5-11.0)
[2023-11-05 22:46] LABS: ANION GAP 6 mmol/L (8-16); CALCIUM, TOTAL 8.7 mg/dL (8.8-10.5); CARBON DIOXIDE 31 mmol/L (22-29); CHLORIDE 101 mmol/L (98-107); CREATININE 0.96 mg/dL (0.60-1.30); GLOMERULAR FILTR. RATE CALC > 60 mL/min (>60); GLUCOSE,RANDOM 118 mg/dL (70-110); POTASSIUM 4.2 mmol/L (3.5-5.1); SODIUM SERUM 138 mmol/L (136-145); UREA NITROGEN, BLOOD 19 mg/dL (7-18)
[2023-11-05] MEDS: CefTRIAXone 1 GM/DEXTROSE 50 ML IV ONE (22:47)
[2023-11-05 22:51] LABS: D-DIMER 0.36 mg/L FEU (0.00-0.50)
[2023-11-05 22:55] LABS: LACTIC ACID 0.7 mmol/L (0.4-2.0)
[2023-11-05 23:06] LABS: ALANINE AMINOTRANSFERASE 20 U/L (12-78); ALKALINE PHOSPHATASE 74 U/L (46-116); ASPARTATE AMINOTRANSFERASE 17 U/L (15-37); BILIRUBIN,TOTAL 0.3 mg/dL (0.1-1.0); C-REACTIVE PROTEIN QUANT 2.67 mg/dL (0.00-0.30); FERRITIN 88 ng/mL (26-388); HCG,QUANTITATIVE < 1 mIU/mL (0-6); LACTATE DEHYDROGENASE 149 U/L (85-227); TOTAL PROTEIN, SERUM 5.8 g/dL (6.4-8.2)
[2023-11-05] MEDS: REMDESIVIR 200 MG in SODIUM CHLORIDE 0.9% 250 ML IV ONE (23:22)
[2023-11-05 23:28] LABS: TROPONIN I-HIGH SENSITIVITY 5 ng/L (<76)
[2023-11-05] MEDS: DEXAMETHASONE SOD PHOS 4 MG/ML VIAL IVP SCH (23:50)
[2023-11-06] MEDS: PNEUMOCOCCAL VACCINE POLYVALENT 0.5 ML SYRINGE [PPSV23] IM. ONE (01:45)
[2023-11-06] MEDS: INFLUENZA VIRUS VACCINE QVS 2023-24 (6MO+)/PF 60 MCG/0.5 ML SYRINGE IM. ONE (01:45)
[2023-11-06 04:47] VITALS: BP 123/67; PULSE 70; RESP 18; TEMP 98.6
[2023-11-06 07:21] LABS: APPEARANCE,URINE CLEAR (CLEAR); BILIRUBIN,URINE NEGATIVE (NEGATIVE); COLOR,URINE LIGHT YELLOW (YELLOW); GLUCOSE, URINE (UA) NEGATIVE (NEGATIVE); KETONES,URINE NEGATIVE (NEGATIVE); LEUKOCYTE ESTERASE ,URINE NEGATIVE (NEGATIVE); NITRATE,URINE NEGATIVE (NEGATIVE); OCCULT BLOOD,URINE NEGATIVE (NEGATIVE); PH,URINE 5.5 (5.0-8.0); PROTEIN,URINE NEGATIVE (NEGATIVE); SPECIFIC GRAVITIY, URINE 1.014 (1.003-1.030); UROBILINOGEN,URINE <=1.0 mg/dL (<=1.0)
[2023-11-06 08:33] VITALS: BP 122/64; PULSE 78; RESP 19; TEMP 98.4
[2023-11-06] MEDS: GuaiFENesin/CODEINE [SUGAR FREE] 200-20MG/10 ML SYRUP UDCUP PO PRN (13:55)
[2023-11-06] MEDS: LORazepam 2 MG TABLET PO ONE (13:55)
[2023-11-06] MEDS: PREGABALIN 25 MG CAPSULE PO SCH (16:11)
[2023-11-06 16:17] VITALS: BP 118/66; PULSE 72; RESP 19; TEMP 98.9
[2023-11-06] MEDS: LORazepam 2 MG TABLET PO PRN (18:07)
[2023-11-06 19:15] VITALS: BP 125/64; PULSE 97; RESP 20; TEMP 98.5
[2023-11-06 19:24] LABS: TROPONIN I-HIGH SENSITIVITY 7 ng/L (<76)
[2023-11-06] MEDS: SODIUM CHLORIDE 0.9% 500 ML IV ONE (19:43)
[2023-11-06] MEDS: QUEtiapine FUMARATE 200 MG TABLET PO SCH (20:14)
[2023-11-06] MEDS: MELATONIN 5 MG TABLET PO SCH (20:14)
[2023-11-06] MEDS: SODIUM CHLORIDE 0.9% 1,000 ML IV SCH (20:15)
[2023-11-06] MEDS: REMDESIVIR 100 MG in SODIUM CHLORIDE 0.9% 250 ML IV SCH (22:33)
[2023-11-06 23:01] LABS: TROPONIN I-HIGH SENSITIVITY 6 ng/L (<76)
[2023-11-07 03:00] VITALS: BP 112/60; PULSE 75; RESP 18; TEMP 98.1
[2023-11-07 07:50] VITALS: BP 132/70; PULSE 67; RESP 18; TEMP 97.8
[2023-11-07] MEDS: OMEGA-3/DHA/EPA/FISH OIL 1,000 MG CAPSULE PO SCH (08:32)
[2023-11-07] MEDS: BuPROPion HCL XL 150 MG ER TABLET PO SCH (09:23)
[2023-11-07] MEDS: DULoxetine HCL 20 MG CAPSULE PO SCH (09:23)
[2023-11-07 11:02] LABS: ALANINE AMINOTRANSFERASE 20 U/L (12-78); ALBUMIN 2.8 g/dL (3.4-5.0); ALKALINE PHOSPHATASE 68 U/L (46-116); ANION GAP 7 mmol/L (8-16); ASPARTATE AMINOTRANSFERASE 17 U/L (15-37); BILIRUBIN,TOTAL 0.2 mg/dL (0.1-1.0); CALCIUM, TOTAL 8.4 mg/dL (8.8-10.5); CARBON DIOXIDE 28 mmol/L (22-29); CHLORIDE 105 mmol/L (98-107); CREATININE 0.85 mg/dL (0.60-1.30); GLOMERULAR FILTR. RATE CALC > 60 mL/min (>60); GLUCOSE,RANDOM 161 mg/dL (70-110); POTASSIUM 4.1 mmol/L (3.5-5.1); SODIUM SERUM 140 mmol/L (136-145); TOTAL PROTEIN, SERUM 5.7 g/dL (6.4-8.2); UREA NITROGEN, BLOOD 13 mg/dL (7-18)
[2023-11-07 14:45] VITALS: BP 125/69; PULSE 78; RESP 18; TEMP 98.1
[2023-11-07 19:30] VITALS: BP 120/76; PULSE 82; RESP 18; TEMP 98.2
[2023-11-08 04:15] VITALS: BP 125/73; PULSE 71; RESP 20; TEMP 97.6
[2023-11-08 07:49] LABS: ALANINE AMINOTRANSFERASE 21 U/L (12-78); ALKALINE PHOSPHATASE 68 U/L (46-116); ANION GAP 5 mmol/L (8-16); ASPARTATE AMINOTRANSFERASE 15 U/L (15-37); BILIRUBIN,TOTAL 0.1 mg/dL (0.1-1.0); CALCIUM, TOTAL 8.9 mg/dL (8.8-10.5); CARBON DIOXIDE 33 mmol/L (22-29); CHLORIDE 104 mmol/L (98-107); CREATININE 0.91 mg/dL (0.60-1.30); GLOMERULAR FILTR. RATE CALC > 60 mL/min (>60); GLUCOSE,RANDOM 90 mg/dL (70-110); POTASSIUM 4.1 mmol/L (3.5-5.1); SODIUM SERUM 142 mmol/L (136-145); TOTAL PROTEIN, SERUM 5.8 g/dL (6.4-8.2); UREA NITROGEN, BLOOD 14 mg/dL (7-18)
[2023-11-08 08:27] VITALS: BP 135/96; PULSE 70; RESP 20; TEMP 98.1
[2023-11-08 17:03] VITALS: BP 116/78; PULSE 92; RESP 20; TEMP 98.2
[2023-11-08 19:45] VITALS: BP 115/65; PULSE 76; RESP 18; TEMP 97.7
[2023-11-09 03:30] VITALS: BP 114/77; PULSE 56; RESP 18; TEMP 98.1
[2023-11-09 08:00] VITALS: BP 116/72; PULSE 90; RESP 19; TEMP 98.4
[2023-11-09 15:57] LABS: ALANINE AMINOTRANSFERASE 28 U/L (12-78); ALBUMIN 3.2 g/dL (3.4-5.0); ALKALINE PHOSPHATASE 72 U/L (46-116); ANION GAP 8 mmol/L (8-16); ASPARTATE AMINOTRANSFERASE 18 U/L (15-37); BILIRUBIN,TOTAL 0.2 mg/dL (0.1-1.0); CALCIUM, TOTAL 9.2 mg/dL (8.8-10.5); CARBON DIOXIDE 28 mmol/L (22-29); CHLORIDE 102 mmol/L (98-107); CREATININE 1.07 mg/dL (0.60-1.30); GLOMERULAR FILTR. RATE CALC > 60 mL/min (>60); GLUCOSE,RANDOM 120 mg/dL (70-110); POTASSIUM 4.4 mmol/L (3.5-5.1); SODIUM SERUM 138 mmol/L (136-145); TOTAL PROTEIN, SERUM 6.3 g/dL (6.4-8.2); UREA NITROGEN, BLOOD 13 mg/dL (7-18)
[2023-11-09 16:00] VITALS: BP 128/70; PULSE 78; RESP 19; TEMP 98.2
[2023-11-09] MEDS: QUEtiapine FUMARATE 100 MG TABLET PO PRN (18:00)
[2023-11-09 19:35] VITALS: BP 109/61; PULSE 84; RESP 18; TEMP 98.1
[2023-11-09 22:14] VITALS: BP 112/64; PULSE 76; RESP 18; TEMP 98.9
[2023-11-10 05:55] VITALS: BP 111/74; PULSE 60; RESP 18; TEMP 98
[2023-11-10 08:14] VITALS: BP 115/66; PULSE 52; RESP 18; TEMP 97.9
[2023-11-10 16:11] VITALS: BP 104/59; PULSE 94; RESP 20; TEMP 97.5
[2023-11-10 17:08] LABS: COVID AG,FIA SOURCE NASAL SWAB
[2023-11-10 17:38] LABS: SARS-COV2 (COVID) ANTIGEN,FIA Positive (Negative)
[2023-11-10 19:33] VITALS: BP 112/67; PULSE 84; RESP 19; TEMP 98.7
[2023-11-11 05:10] VITALS: BP 101/53; PULSE 57; RESP 19; TEMP 97.8
[2023-11-11 08:32] VITALS: BP 108/59; PULSE 58; RESP 19; TEMP 97.8
[2023-11-11 15:45] VITALS: BP 110/62; PULSE 82; RESP 19; TEMP 98.1
[2023-11-11 19:26] VITALS: BP 111/58; PULSE 89; RESP 18; TEMP 98.4
[2023-11-12 05:55] VITALS: BP 100/67; PULSE 61; RESP 18; TEMP 98.4
[2023-11-12 07:22] VITALS: BP 104/68; PULSE 64; RESP 18; TEMP 98.2
[2023-11-12 15:45] VITALS: BP 108/64; PULSE 68; RESP 18; TEMP 98.7
[2023-11-12 16:45] LABS: COVID AG,FIA SOURCE NASAL SWAB
[2023-11-12 17:07] LABS: SARS-COV2 (COVID) ANTIGEN,FIA Negative (Negative)
[2023-11-12 20:15] VITALS: BP 105/56; PULSE 75; RESP 18; TEMP 98.1
[2023-11-13 05:00] VITALS: BP 104/59; PULSE 60; RESP 18; TEMP 97.8
[2023-11-13 08:18] VITALS: BP 98/60; PULSE 64; RESP 18; TEMP 98
== END 2023-11-13 15:05 | DRG 871 ==
LOC: 6N 21:10
PROVIDERS: ADMIT Internal Medicine; ATTEND Internal Medicine
PROC: XW033E5 Introduction of Remdesivir Anti-infective into Peripheral Vein, Percutaneous Approach, New Technology Group 5 (ICD-10-PCS; principal; 2023-11-05)
DX: A41.89 Other specified sepsis (principal); J12.82 Pneumonia due to coronavirus disease 2019; U07.1 COVID-19; J96.91 Respiratory failure, unspecified with hypoxia; R45.851 Suicidal ideations; J44.0 Chronic obstructive pulmonary disease with (acute) lower respiratory infection; F33.3 Major depressive disorder, recurrent, severe with psychotic symptoms; F17.210 Nicotine dependence, cigarettes, uncomplicated; Z79.899 Other long term (current) drug therapy
CPT/HCPCS: 71045; 80053; 81003; 82728; 83605; 83615; 83880; 84145; 84484; 84702; 85025; 85379; 85730; 86140; 87040; 93005; 99285; J0696; J1100; J7030; J7040; J7050; Q9967; 36415-L1; 36415-TC

== ENCOUNTER 2024-04-14 17:31 | Emergency (ER) | payer MEDICARE, MEDICAID ==
[~2024-04-14] VITALS: Ht 180.3 cm; Wt 100.0 kg
[~2024-04-14 17:31] MED LIST changes: -ALBU18HF12 IH; -DULO-114 PO; -PREG25 PO; -QUET300T19 PO
[2024-04-14 17:50] VITALS: TEMP 98.6
[2024-04-14] MEDS: IBUPROFEN 600 MG TABLET PO ONE (19:49)
[2024-04-14 20:00] VITALS: BP 135/84; PULSE 89; RESP 16
== END 2024-04-14 20:00 | disposition home or self-care (01) ==
LOC: EMS 17:31
DX: S02.2XXA Fracture of nasal bones, initial encounter for closed fracture (principal); J44.9 Chronic obstructive pulmonary disease, unspecified; F17.210 Nicotine dependence, cigarettes, uncomplicated; F15.10 Other stimulant abuse, uncomplicated; Z88.8 Allergy status to other drugs, medicaments and biological substances; Y04.0XXA Assault by unarmed brawl or fight, initial encounter; Y93.89 Activity, other specified; Y92.89 Other specified places as the place of occurrence of the external cause; Y99.8 Other external cause status
CPT/HCPCS: 70450; 70486; 99284

== ENCOUNTER 2024-04-28 21:14 | Emergency (ER) | payer MEDICARE, MEDICAID | END 2024-04-29 02:32 | LOC: EMS 21:14 | DX: S00.01XA Abrasion of scalp, initial encounter (principal); S50.811A Abrasion of right forearm, initial encounter; J44.9 Chronic obstructive pulmonary disease, unspecified; F17.210 Nicotine dependence, cigarettes, uncomplicated; F15.10 Other stimulant abuse, uncomplicated; Z88.8 Allergy status to other drugs, medicaments and biological substances; Y04.0XXA Assault by unarmed brawl or fight, initial encounter; Y93.89 Activity, other specified; Y92.89 Other specified places as the place of occurrence of the external cause; Y99.8 Other external cause status | CPT/HCPCS: 99283; Z7502 ==

== ENCOUNTER 2025-06-11 11:20 | Inpatient (IN) | payer MEDICARE, MEDICAID ==
[~2025-06-11] VITALS: Ht 180.3 cm; Wt 92.1 kg
[2025-06-11 09:57] VITALS: BP 116/68; PULSE 69; RESP 16; TEMP 97.9; O2SAT 99
[~2025-06-11 11:20] MED LIST changes: -DULO-113 PO; +DULO60CA73 PO
[2025-06-11] MEDS ORDERED: ZOLPIDEM TARTRATE 10 MG TABLET PO PRN (14:30)
[2025-06-11 16:30] VITALS: BP 126/84; PULSE 81; RESP 18; TEMP 97.7; O2SAT 99
[2025-06-11] MEDS ORDERED: MAGNESIUM HYDROXIDE SUSPENSION 30 ML UDCUP PO PRN ×2 (19:30→19:45)
[2025-06-11] MEDS ORDERED: BACITRACIN 28 GM OINTMENT TP PRN ×2 (19:30→19:45)
[2025-06-11] MEDS ORDERED: SELENIUM SULFIDE 1% 207 ML SHAMPOO TP PRN (19:30)
[2025-06-11] MEDS ORDERED: PETROLATUM,WHITE 28 GM JELLY TP PRN ×2 (19:30→19:45)
[2025-06-11] MEDS ORDERED: ONDANSETRON 4 MG TABLET PO PRN ×2 (19:30→19:45)
[2025-06-11] MEDS ORDERED: IPRATROPIUM BROMIDE 0.5 MG/2.5 ML NEB SOLUTION NEB PRN (19:30)
[2025-06-11] MEDS ORDERED: ALBUTEROL SULFATE HFA 90 MCG/PUFF 8 GM INHALER IH PRN ×2 (19:30→19:45)
[2025-06-11] MEDS ORDERED: DOCUSATE SODIUM 100 MG CAPSULE PO PRN ×2 (19:30→19:45)
[2025-06-11] MEDS ORDERED: ACETAMINOPHEN 325 MG TABLET PO PRN ×2 (19:30→19:45)
[2025-06-11] MEDS: NICOTINE 21 MG/24 HOUR PATCH TD SCH (19:30)
[2025-06-11] MEDS ORDERED: BENZOCAINE/MENTHOL [CEPACOL] LOZENGE PO PRN ×2 (19:30→19:45)
[2025-06-11] MEDS ORDERED: MAG HYDROX/ALUMINUM HYD/SIMETH ES 30 ML SUSPENSION UDCUP PO PRN (19:45)
[2025-06-11] MEDS ORDERED: IBUPROFEN 600 MG TABLET PO PRN (19:45)
[2025-06-11] MEDS ORDERED: OMEPRAZOLE 20 MG CAPSULE PO PRN (19:45)
[2025-06-11] MEDS ORDERED: LOPERAMIDE HCL 2 MG CAPSULE PO PRN (19:45)
[2025-06-11 20:07] VITALS: BP 106/61; PULSE 67; RESP 18; TEMP 97.9; O2SAT 99
[2025-06-12 08:31] VITALS: BP 121/71; PULSE 67; RESP 18; TEMP 97.5; O2SAT 98
[2025-06-12] MEDS: FLUTICASONE/VILANTEROL 200-25 MCG/INH INHALER [14] IH SCH (09:07)
[2025-06-12] MEDS: PREGABALIN 50 MG CAPSULE PO SCH (09:07)
[2025-06-12 09:15] LABS: PLATELET COUNT (AUTO) 152 K/uL (150-450); RED BLOOD CELL COUNT(AUTO) 5.07 MIL/uL (4.50-5.90); RED CELL DISTRIBUTION WIDTH 13.9 % (11.5-14.5); WHITE BLOOD COUNT (AUTO) 4.6 K/uL (4.5-11.0)
[2025-06-12 09:36] LABS: ASPARTATE AMINOTRANSFERASE 16 U/L (15-37); CALCIUM, TOTAL 8.9 mg/dL (8.8-10.5); CHOL/HDL RATIO 2.4 (4.2-7.3); CREATININE 0.73 mg/dL (0.60-1.30); GLOMERULAR FILTR. RATE CALC > 60 mL/min (>60); GLUCOSE,RANDOM 162 mg/dL (70-110); LDL CHOL (CALC.) 38 mg/dL (0-130); SODIUM SERUM 140 mmol/L (136-145); TOTAL PROTEIN, SERUM 6.2 g/dL (6.4-8.2); UREA NITROGEN, BLOOD 17 mg/dL (7-18)
[2025-06-12] MEDS: LITHIUM CARBONATE 300 MG CAPSULE PO SCH (10:51)
[2025-06-12] MEDS: BuPROPion HCL XL 150 MG ER TABLET PO SCH (10:51)
[2025-06-12 19:35] VITALS: BP 106/61; PULSE 80; RESP 18; TEMP 98.5; O2SAT 97
[2025-06-12 20:00] VITALS: BP 106/61; PULSE 80; RESP 18; TEMP 98.5; O2SAT 97
[2025-06-13 08:07] LABS: HEPATITIS C AB (EIA) Non Reactive (Non Reactive)
[2025-06-13 08:10] VITALS: BP 100/70; PULSE 72; RESP 17; TEMP 98.1; O2SAT 96
[2025-06-13 17:38] VITALS: BP 117/95; RESP 18
[2025-06-13 20:24] VITALS: BP 106/70; PULSE 70; RESP 17; TEMP 97.7; O2SAT 98
[2025-06-14 08:39] VITALS: BP 100/64; PULSE 67; RESP 16; TEMP 97.8; O2SAT 98
[2025-06-14 20:23] VITALS: BP 108/66; PULSE 77; RESP 17; TEMP 97.9; O2SAT 97
[2025-06-15 08:29] VITALS: BP 102/58; PULSE 72; RESP 19; TEMP 98.1; O2SAT 98
[2025-06-15 20:24] VITALS: BP 91/71; PULSE 94; RESP 18; TEMP 97.5; O2SAT 98
[2025-06-16 08:57] VITALS: BP 123/69; PULSE 66; RESP 17; TEMP 98.2; O2SAT 98
[2025-06-16 10:54] LABS: APPEARANCE,URINE CLEAR (CLEAR); GLUCOSE, URINE (UA) NEGATIVE (NEGATIVE); LEUKOCYTE ESTERASE ,URINE NEGATIVE (NEGATIVE); NITRATE,URINE NEGATIVE (NEGATIVE); OCCULT BLOOD,URINE NEGATIVE (NEGATIVE); PH,URINE DRUG SCREEN 6.0 (5.0-8.0); SPECIFIC GRAVITIY, URINE 1.023 (1.003-1.030)
[2025-06-16 10:57] LABS: ALCOHOL, URINE DRUG SCREEN NEGATIVE (NEGATIVE); AMPHET/METH SCREEN,URINE NEGATIVE (NEGATIVE); BARBITURATE SCREEN, URINE NEGATIVE (NEGATIVE); CANNABINOID SCREEN,URINE NEGATIVE (NEGATIVE); COCAINE SCREEN,URINE NEGATIVE (NEGATIVE); METHADONE SCREEN, URINE NEGATIVE (NEGATIVE)
[2025-06-16 20:42] VITALS: RESP 16
[2025-06-16 22:43] VITALS: BP 107/85; PULSE 97; RESP 16; O2SAT 95
[2025-06-17 08:33] VITALS: RESP 17
[2025-06-17 20:25] VITALS: BP 102/62; PULSE 78; RESP 16; TEMP 97.9; O2SAT 96
[2025-06-18 08:13] VITALS: BP 114/76; PULSE 84; RESP 18; TEMP 97.4; O2SAT 97
[2025-06-18 14:43] VITALS: BP 105/72; PULSE 79; RESP 17; TEMP 98; O2SAT 97
[2025-06-18] MEDS: IBUPROFEN 600 MG TABLET PO PRN (14:43)
[2025-06-18 15:43] VITALS: BP 110/73; PULSE 85; RESP 18; TEMP 97.8; O2SAT 98
[2025-06-18 20:23] VITALS: BP 124/82; PULSE 80; RESP 18; TEMP 98; O2SAT 97
[2025-06-19 09:14] VITALS: BP 119/81; PULSE 73; RESP 17; TEMP 97.7; O2SAT 99
[2025-06-19] MEDS ORDERED: QUET300T2 PO (14:42)
[2025-06-19] MEDS: MAG HYDROX/ALUMINUM HYD/SIMETH ES 30 ML SUSPENSION UDCUP PO PRN (20:24)
[2025-06-19 21:04] VITALS: BP 114/70; PULSE 79; RESP 19; TEMP 98; O2SAT 100
[2025-06-20 09:05] VITALS: BP 120/73; PULSE 69; RESP 17; TEMP 97.8; O2SAT 97
[2025-06-20 20:16] VITALS: BP 108/68; PULSE 69; RESP 17; TEMP 98.4; O2SAT 100
[2025-06-21] MEDS: LOPERAMIDE HCL 2 MG CAPSULE PO PRN (07:06)
[2025-06-21 08:28] VITALS: BP 113/56; PULSE 81; RESP 17; TEMP 98.2; O2SAT 98
[2025-06-21] MEDS: OMEPRAZOLE 20 MG CAPSULE PO PRN (16:14)
[2025-06-21 20:00] VITALS: BP 129/78; PULSE 80; RESP 18; TEMP 98; O2SAT 100
[2025-06-22 08:29] VITALS: BP 118/87; PULSE 78; RESP 18; TEMP 97.7; O2SAT 99
[2025-06-22 20:04] VITALS: BP 123/64; PULSE 82; RESP 17; TEMP 97.9; O2SAT 99
[2025-06-23 08:26] VITALS: BP 115/72; PULSE 69; RESP 18; TEMP 98; O2SAT 99
[2025-06-23 20:08] VITALS: BP 124/75; PULSE 88; RESP 18; TEMP 97.7; O2SAT 98
[2025-06-24 08:13] VITALS: BP 114/68; PULSE 81; RESP 17; TEMP 97.7; O2SAT 96
[2025-06-24 20:06] VITALS: BP 118/73; PULSE 77; RESP 18; TEMP 97.8; O2SAT 98
[2025-06-25 08:21] VITALS: BP 139/69; PULSE 64; RESP 18; TEMP 97.8; O2SAT 97
[2025-06-25 20:00] VITALS: BP 119/76; PULSE 67; RESP 17; TEMP 98; O2SAT 97
[2025-06-26 08:40] VITALS: BP 129/89; PULSE 66; RESP 18; TEMP 97.6; O2SAT 99
[2025-06-26] MEDS: DULoxetine HCL 60 MG CAPSULE PO SCH (16:32)
[2025-06-26 20:10] VITALS: BP 100/60; PULSE 70; RESP 16; TEMP 98; O2SAT 99
[2025-06-27 12:48] VITALS: RESP 16
[2025-06-27 20:14] VITALS: BP 114/74; PULSE 71; RESP 18; TEMP 97.9; O2SAT 97
[2025-06-28 08:41] VITALS: BP 106/64; PULSE 57; RESP 17; TEMP 98.3; O2SAT 98
[2025-06-28 22:08] VITALS: BP 113/78; PULSE 68; RESP 18; TEMP 97.7; O2SAT 97
[2025-06-29 08:36] VITALS: BP 109/61; PULSE 64; RESP 19; TEMP 98; O2SAT 100
[2025-06-29 20:22] VITALS: BP 117/68; PULSE 78; RESP 17; TEMP 98.1; O2SAT 100
[2025-06-30 09:33] VITALS: BP 131/75; PULSE 76; RESP 18; TEMP 97.9; O2SAT 98
[2025-06-30 20:37] VITALS: BP 122/82; PULSE 86; RESP 17; TEMP 98.2; O2SAT 98
[2025-07-01 08:19] VITALS: BP 110/75; PULSE 80; RESP 17; TEMP 97.8; O2SAT 96
[2025-07-01 22:17] VITALS: BP 111/64; PULSE 69; RESP 17; TEMP 97.8; O2SAT 97
[2025-07-02 08:27] VITALS: BP 115/57; PULSE 63; RESP 17; TEMP 98.2; O2SAT 99
[2025-07-03 08:21] VITALS: BP 101/65; PULSE 66; RESP 17; TEMP 98; O2SAT 100
[2025-07-03 16:02] VITALS: BP 114/83; PULSE 89; RESP 18; TEMP 98.6; O2SAT 97
[2025-07-03] MEDS ORDERED: DULO60CA73 PO (16:06)
[2025-07-03] MEDS ORDERED: FLUT1BLS IH (16:07)
[2025-07-04 08:48] VITALS: BP 102/60; PULSE 62; RESP 18; TEMP 98.1; O2SAT 97
[2025-07-04 20:18] VITALS: BP 115/72; PULSE 78; RESP 18; TEMP 97.8; O2SAT 99
[2025-07-05 08:31] VITALS: BP 105/61; PULSE 70; RESP 18; TEMP 98; O2SAT 96
[2025-07-05 20:58] VITALS: BP 104/61; PULSE 79; RESP 16; TEMP 97.9; O2SAT 96
[2025-07-06 09:11] VITALS: BP 105/65; PULSE 71; RESP 17; TEMP 97.9; O2SAT 98
== END 2025-07-06 11:16 | DRG 885 ==
LOC: B3A 14:30 → B2X 06-13 16:22
PROVIDERS: ADMIT Psychiatry & Neurology Psychiatry; ATTEND Psychiatry & Neurology Psychiatry
PROC: GZHZZZZ Group Psychotherapy (ICD-10-PCS; principal; 2025-06-12)
PROC: GZ52ZZZ Individual Psychotherapy, Cognitive (ICD-10-PCS; 2025-06-12)
DX: F25.1 Schizoaffective disorder, depressive type (principal); R45.851 Suicidal ideations; Z59.00 Homelessness unspecified; F41.9 Anxiety disorder, unspecified; G47.00 Insomnia, unspecified; G89.29 Other chronic pain; H54.7 Unspecified visual loss; I10 Essential (primary) hypertension; J44.9 Chronic obstructive pulmonary disease, unspecified; K59.00 Constipation, unspecified; M13.0 Polyarthritis, unspecified; M54.9 Dorsalgia, unspecified; M25.579 Pain in unspecified ankle and joints of unspecified foot; Z72.0 Tobacco use; Z65.3 Problems related to other legal circumstances; Z79.899 Other long term (current) drug therapy; Z91.51 Personal history of suicidal behavior; Z88.8 Allergy status to other drugs, medicaments and biological substances; Z68.28 Body mass index [BMI] 28.0-28.9, adult
CPT/HCPCS: 80053; 80061; 80307; 81003; 83036; 84439; 84443; 85025; 86803; 87340